=== PATIENT | male | born 1965 | race African-American/Black ===

== ENCOUNTER 2021-06-17 03:39 | Emergency (ER) | payer MEDICAID, OTHER ==
[~2021-06-17] VITALS: Ht 190.5 cm; Wt 84.0 kg
[2021-06-17] MEDS ORDERED: LIDOCAINE HCL/EPINEPHRINE 1%-EPI 1:100,000 20 ML VIAL INFIL ONE (04:15)
[2021-06-17] MEDS ORDERED: TETANUS, DIPHTHERIA, PERTUSSIS VAC/PF 0.5ML (>10YR OLD) IM ONE (04:15)
[2021-06-17] MEDS ORDERED: HYDROCODONE/ACETAMINOPHEN 10/325MG TABLET PO ONE (05:15)
[2021-06-17 06:10] VITALS: BP 142/87
== END 2021-06-17 06:35 | disposition home or self-care (01) ==
LOC: ER 03:39
DX: S01.81XA Laceration without foreign body of other part of head, initial encounter (principal); R91.1 Solitary pulmonary nodule; Y04.0XXA Assault by unarmed brawl or fight, initial encounter; Y93.89 Activity, other specified; Y92.89 Other specified places as the place of occurrence of the external cause; Y99.8 Other external cause status
CPT/HCPCS: 12015; 70450; 70486; 72125; 90471; 90715; 99284; J3490; Z7610

== ENCOUNTER 2021-06-24 07:04 | Emergency (ER) | payer MEDICAID ==
[~2021-06-24] VITALS: Ht 190.5 cm; Wt 87.0 kg
[2021-06-24 07:15] VITALS: BP 132/90
== END 2021-06-24 07:58 | disposition home or self-care (01) ==
LOC: ER 07:04
DX: S01.81XD Laceration without foreign body of other part of head, subsequent encounter (principal); Z48.02 Encounter for removal of sutures; X58.XXXD Exposure to other specified factors, subsequent encounter
CPT/HCPCS: 99281

== ENCOUNTER 2021-10-21 06:26 | Emergency (ER) | payer MEDICAID ==
[~2021-10-21] VITALS: Ht 190.5 cm; Wt 80.6 kg
[2021-10-21 06:37] VITALS: BP 141/86
[2021-10-21] MEDS ORDERED: IBUPROFEN 600MG TABLET PO STA (07:17)
[2021-10-21 07:45] LABS: CLARITY URINE CLEAR (CLEAR); COLOR URINE YELLOW (YELLOW); KETONES URINE TRACE (NEGATIVE); LEUKOCYTE ESTERASE URINE 3+ (NEGATIVE); NITRITE URINE NEGATIVE (NEGATIVE); OCCULT BLOOD URINE NEGATIVE (NEGATIVE); PH URINE 5.5 (4.5-8.0); PROTEIN URINE TRACE (NEGATIVE); SPECIFIC GRAVITY URINE 1.028 (1.005-1.030); UROBILINOGEN URINE 0.2 E.U./dL (0.2-1.0)
[2021-10-21] MEDS ORDERED: CEPH500C2 MT ×2 (08:15)
[2021-10-21] MEDS ORDERED: DOXY100C5 MT ×2 (08:15)
[2021-10-28] MEDS ORDERED: CEPH500C2 MT (05:50)
[2021-10-28] MEDS ORDERED: DOXY100C5 MT (05:50)
== END 2021-10-21 08:32 | disposition home or self-care (01) ==
LOC: ER 06:26
DX: N30.90 Cystitis, unspecified without hematuria (principal)
CPT/HCPCS: 81003; 99283

== ENCOUNTER 2021-10-24 05:02 | Emergency (ER) | payer MEDICAID ==
[~2021-10-24] VITALS: Ht 190.5 cm; Wt 84.0 kg
[~2021-10-24 05:02] MED LIST: CEPH500C2 MT; DOXY100C5 MT
[2021-10-24 05:40] VITALS: BP 121/80
[2021-10-24] MEDS ORDERED: ACETAMINOPHEN 325MG TABLET PO ONE (06:00)
[2021-10-24 06:15] LABS: CLARITY URINE CLEAR (CLEAR); COLOR URINE YELLOW (YELLOW); KETONES URINE TRACE (NEGATIVE); LEUKOCYTE ESTERASE URINE 1+ (NEGATIVE); NITRITE URINE NEGATIVE (NEGATIVE); OCCULT BLOOD URINE NEGATIVE (NEGATIVE); PROTEIN URINE TRACE (NEGATIVE); SPECIFIC GRAVITY URINE 1.024 (1.005-1.030); UROBILINOGEN URINE 0.2 E.U./dL (0.2-1.0)
[2021-10-24] MEDS ORDERED: T3 PO (08:20)
[2021-10-24] MEDS ORDERED: IBUP-2028 PO (08:20)
[2021-10-24] MEDS ORDERED: CEFTRIAXONE SODIUM 500 MG/VIAL IM ONE (08:30)
[2021-10-28] MEDS ORDERED: CEPH500C2 MT (05:50)
[2021-10-28] MEDS ORDERED: DOXY100C5 MT (05:50)
== END 2021-10-24 08:42 | disposition home or self-care (01) ==
LOC: ER 05:02
DX: N45.1 Epididymitis (principal); N39.0 Urinary tract infection, site not specified
CPT/HCPCS: 76870; 81003; 93976; 96372; 99284; J0696

== ENCOUNTER 2022-01-05 08:09 | Emergency (ER) | payer MEDICAID ==
[~2022-01-05] VITALS: Ht 190.5 cm; Wt 84.0 kg
[~2022-01-05 08:09] MED LIST changes: +IBUP-2028 PO; +T3 PO
[2022-01-05] MEDS ORDERED: IBUPROFEN 600MG TABLET PO ONE (08:45)
[2022-01-05] MEDS ORDERED: CYCLOBENZAPRINE 10MG TABLET PO ONE (08:45)
[2022-01-05 09:26] VITALS: BP 122/89
[2022-01-05] MEDS ORDERED: CYCL10TA21 MT (09:43)
[2022-01-05] MEDS ORDERED: IBUP-2028 MT (09:43)
[2022-01-05] MEDS ORDERED: TUSSL MT (09:43)
== END 2022-01-05 10:04 | disposition home or self-care (01) ==
LOC: ER 08:20
DX: M54.59 Other low back pain (principal); R05.8 Other specified cough; F17.210 Nicotine dependence, cigarettes, uncomplicated
CPT/HCPCS: 71045; 99283

== ENCOUNTER 2022-05-12 16:34 | Emergency (ER) | payer MEDICAID ==
[~2022-05-12] VITALS: Ht 188 cm; Wt 100.0 kg
[~2022-05-12 16:34] MED LIST changes: +CYCL10TA21 MT; +IBUP-2028 MT; +TUSSL MT
[2022-05-12 16:56] VITALS: BP 125/81
== END 2022-05-12 18:37 | disposition left against medical advice (07) ==
LOC: ER 17:10
DX: Z53.21 Procedure and treatment not carried out due to patient leaving prior to being seen by health care provider (principal)

== ENCOUNTER 2022-08-19 20:35 | Emergency (ER) | payer MEDICAID ==
[~2022-08-19] VITALS: Ht 190.5 cm; Wt 86.3 kg
[2022-08-19 20:56] VITALS: BP 126/89
== END 2022-08-19 23:36 | disposition left against medical advice (07) ==
LOC: ER 20:48
DX: Z53.21 Procedure and treatment not carried out due to patient leaving prior to being seen by health care provider (principal)